=== PATIENT | male | born 1955 | race Caucasian/White ===

== ENCOUNTER 2016-12-03 12:40 | Emergency (ER) | payer BC ==
[~2016-12-03] VITALS: Ht 175.3 cm; Wt 125.2 kg
[2016-12-03] MEDS ORDERED: PREDNISONE 10 M10 MG (12:48)
[2016-12-03] MEDS ORDERED: ULTRAM 50MG TAB50 MG PO (15:21)
[2016-12-03 15:44] VITALS: BP 141/67
== END 2016-12-03 15:44 | disposition home or self-care (01) ==
LOC: ER 12:40
DX: S52.592A Other fractures of lower end of left radius, initial encounter for closed fracture (principal); Z87.442 Personal history of urinary calculi; Z98.890 Other specified postprocedural states; F10.99 Alcohol use, unspecified with unspecified alcohol-induced disorder; W01.0XXA Fall on same level from slipping, tripping and stumbling without subsequent striking against object, initial encounter; Y93.89 Activity, other specified; Y92.89 Other specified places as the place of occurrence of the external cause; Y99.8 Other external cause status

== ENCOUNTER 2020-05-25 14:18 | Inpatient (IN) | payer BC ==
[~2020-05-25] VITALS: Ht 175.3 cm; Wt 105.4 kg
[~2020-05-25 14:18] MED LIST: PREDNISONE 10 M10 MG; ULTRAM 50MG TAB50 MG PO
[2020-05-25 14:19] VITALS: BP 179/92
[2020-05-25 14:47] LABS: HEMATOCRIT 54.3 % (42.0-52.0); HEMOGLOBIN 18.6 gm/dL (14.0-18.0); MCH 31.6 pg (26.0-34.0); MCHC 34.2 g/dL (28.0-37.0); MCV 92.2 fL (80.0-100.0); PLATELET COUNT 176 thou/uL (150-400); RBC 5.89 mil/uL (4.50-6.00); RDW 12.6 % (10.5-14.5); WBC 8.5 thou/uL (4.0-11.0)
[2020-05-25 15:03] LABS: ANION GAP 14 mmol/L (7-16); BUN 28 mg/dL (7-18); CALCIUM 9.1 mg/dL (8.5-10.1); CHLORIDE 96 mmol/L (98-107); CO2 25 mmol/L (21-32); CREATININE 1.5 mg/dL (0.7-1.3); GLUCOSE 311 mg/dL (74-106); POTASSIUM 4.8 mmol/L (3.5-5.1); SODIUM 135 mmol/L (136-145)
[2020-05-25 15:09] LABS: ALBUMIN 2.4 g/dL (3.4-5.0); SGOT 88 U/L (15-37); SGPT 58 U/L (30-65); TOTAL BILIRUBIN 1.3 mg/dL (0.2-1.0); TOTAL PROTEIN 7.8 g/dL (6.4-8.2); TROPONIN-I <0.06 ng/mL (<0.06)
[2020-05-25 15:26] LABS: ABSOLUTE NEUTROPHILS 6.5 thou/uL (1.4-8.2)
[2020-05-25 15:28] LABS: LARGE PLATELETS OCCASIONAL
[2020-05-25 15:51] VITALS: BP 142/83
[2020-05-25 15:59] LABS: BE(vivo) 0.3 mmol/L (-2 to +3); HCO3 23.3 mmol/L (22.0-26.0); PCO2 34.1 mmHg (35.0-45.0); PO2 63.4 mmHg (80.0-100.0); pH 7.453 (7.360-7.450); sO2 93.4 % (92.0-98.0)
[2020-05-25 16:15] VITALS: BP 142/83
[2020-05-25 17:02] VITALS: BP 137/75
[2020-05-25] MEDS ORDERED: METFORMIN HCL1000 MG PO (17:05)
[2020-05-25] MEDS ORDERED: OMEPRAZOLE40 MG PO (17:05)
[2020-05-25] MEDS ORDERED: BENZONATATE100 MG PO (17:06)
[2020-05-25] MEDS ORDERED: TAMSULOSIN HCL0.4 MG PO (17:11)
--- NOTE | 2020-05-25 19:12 | NUR ---
PATIENT ADMIT TO UNIT AT 1700. A/O X4. ON NRB 02 SAT 94%. DENIES PAIN. AFEBRILE. VSS. WILL KEEP MONITOR.
[2020-05-25 19:28] VITALS: BP 131/71
[2020-05-26 00:28] VITALS: BP 130/70; BP 144/76
[2020-05-26 04:09] VITALS: BP 110/67
--- NOTE | 2020-05-26 05:13 | NUR ---
Pt. rested quietly at intervals during the night when checked on during frequent rounds. He offers no c/o pain,nausea or shortness of air. He is on 15 liters of 02 via nasal canula. On a continuos pulse oximetry and has been saturating in the mid 90's. Blood given as ordered without dif- ficulty. Sinus rythmn all night on the monitor.
[2020-05-26 05:59] LABS: HEMATOCRIT 46.4 % (42.0-52.0); HEMOGLOBIN 15.9 gm/dL (14.0-18.0); MCH 31.5 pg (26.0-34.0); MCHC 34.2 g/dL (28.0-37.0); MCV 92.2 fL (80.0-100.0); PLATELET COUNT 141 thou/uL (150-400); RBC 5.04 mil/uL (4.50-6.00); RDW 12.4 % (10.5-14.5); WBC 4.1 thou/uL (4.0-11.0)
[2020-05-26 06:04] LABS: FIBRINOGEN 309.3 mg/dL (210-360); INR 1.2; PROTIME 11.9 Seconds (9.3-11.4)
[2020-05-26 06:13] LABS: ALBUMIN 2.1 g/dL (3.4-5.0); CALCIUM 8.2 mg/dL (8.5-10.1); TOTAL BILIRUBIN 0.9 mg/dL (0.2-1.0); TOTAL PROTEIN 6.3 g/dL (6.4-8.2)
[2020-05-26 06:46] LABS: PLATELET ESTIMATE NORMAL
[2020-05-26 07:10] VITALS: BP 112/65
[2020-05-26 14:58] VITALS: BP 119/63
--- NOTE | 2020-05-26 19:20 | NUR ---
ASSUMED PATIENT CARE AT 0700. ON OPTIFLOW O2 WITH CONTINUE PLUSE OX SAT 92%. DENIES PAIN. UP AD DANG. SLOWLY TOWARDS POC GOALS.
[2020-05-26 19:31] VITALS: BP 115/54
--- NOTE | 2020-05-26 23:30 | NUR ---
PT UP IN CHAIR WATCHING TV. OPTI FLOW O2 75%. PT SOA WHEN TALKING. LUNGS WITH CRACKLES. PT DECLINED HS SNACK. BLE EDEMA. PT INDEP WITH AMBULATION. GOOD EYE CONTACT. BLUNTED AFFECT. DISCUSSED THE DIETING PROGRAM PT HAS BEEN ON WITH HIS GIRLFRIEND.
--- NOTE | 2020-05-27 00:17 | NUR ---
PTS DESIGNATED CONTACT CALLED FOR STATUS UPDATE. FAMILY WILL BE BRINGING IN DPOA PAPERS TO BE NOTARIZED TOMORROW.
[2020-05-27 04:41] VITALS: BP 120/71
[2020-05-27 05:49] LABS: ALBUMIN 2.3 g/dL (3.4-5.0); CREATININE 1.2 mg/dL (0.7-1.3); DIRECT BILIRUBIN 0.3 mg/dL (<0.1-0.2); TOTAL BILIRUBIN 0.9 mg/dL (0.2-1.0); TOTAL PROTEIN 6.5 g/dL (6.4-8.2)
[2020-05-27 08:10] VITALS: BP 122/68
[2020-05-27 15:16] VITALS: BP 129/55
[2020-05-27 19:28] VITALS: BP 138/73
--- NOTE | 2020-05-27 23:20 | NUR ---
PT UP IN CHAIR WATCHING TV. OPTI MAX INTACT 52L. RLL DIMINISHED. BLE EDEMA. PT HAD HS SNACK. PT RECEIVED CARE PACKAGE FROM HOME. GIRLFRIEND CALLED FOR UPDATE. PT SOA WHEN TALKING. INDEP WITH TRANSFERS.
[2020-05-28 03:05] VITALS: BP 123/75
[2020-05-28 03:25] LABS: ALBUMIN 2.3 g/dL (3.4-5.0); DIRECT BILIRUBIN 0.3 mg/dL (<0.1-0.2); TOTAL BILIRUBIN 0.6 mg/dL (0.2-1.0); TOTAL PROTEIN 5.7 g/dL (6.4-8.2)
[2020-05-28 07:36] VITALS: BP 134/81
--- NOTE | 2020-05-28 07:36 | EKG ---
[facility] [address] [address] ELECTROCARDIOGRAM REPORT Name: DMITRI CLAUDIO Room #: 349-I ADM IN M.R.#: [id number] Admission: 05/25/20 Attend Phys: Shawn Landin MD Discharge: Date of : 57 Report #: [id number] THIS REPORT FOR: cc: Praveen Wilson MD, Stephen L. MD Lundgren,Sergio Fink MD [facility] ~ THIS REPORT FOR: //name// [facility] ED Test Date: 2020-05-25 Test Time: 15:18:19 Pat Name: DMITRI CLAUDIO Department: Room: [facility] Gender: M Building Services Supervisor: eboni : 1955 Requested By: Madelyn Nazario Order Number: [id number] MD: Sergio Henriquez Measurements Intervals [place] Rate: 90 P: 11 NE: 126 QRS: -16 QRSD: 95 T: 24 QT: 383 QTc: 469 Interpretive Statements Sinus rhythm Nonspecific T wave abnormality Baseline wander in lead(s) V2,V4 No previous ECG available for comparison Electronically Signed On 05-28-2020 7:36:22 PLANNING DIVISION SUPERINTENDENT by Sergio Henriquez [email or web address] <ELECTRONICALLY SIGNED> By: Sergio Henriquez MD, FAC 05/28/20 0736 1518 1518 Sergio Henriquze MD, [facility] /EPI
[2020-05-28 09:51] LABS: HEMATOCRIT 48.2 % (42.0-52.0); HEMOGLOBIN 16.2 gm/dL (14.0-18.0); LYMPHOCYTES 11.9 % (24.0-44.0); MCH 31.4 pg (26.0-34.0); MCHC 33.7 g/dL (28.0-37.0); MCV 93.1 fL (80.0-100.0); MONOCYTES 11.8 % (1.0-8.0); PLATELET COUNT 148 thou/uL (150-400); POLYS 75.3 % (36.0-66.0); RBC 5.18 mil/uL (4.50-6.00); RDW 12.4 % (10.5-14.5)
[2020-05-28 12:09] LABS: BE(vivo) 0.6 mmol/L (-2 to +3); HCO3 23.5 mmol/L (22.0-26.0); PCO2 33.4 mmHg (35.0-45.0); PO2 58.2 mmHg (80.0-100.0); pH 7.465 (7.360-7.450)
--- NOTE | 2020-05-28 14:38 | NUR ---
INITIAL ASSESSMENT: OMERO reviewed chart and opened case due to length of stay. Spoke with nursing and attending physician. Pt was admitted from home due to acute respiratory failure. Pt placed in Enhanced Isolation due to previous positive COVID-19 test. Pt is afebrile and on optiflow. Pt is on IV abx. Pt has had convalescent plasma and is completing course of Remdesivir. SW place call to pt's room. No answer. OMERO spoke with pt's s/o, Georgiana. Introduced role of SW. Pt is normally alert/orientated x 4. Pt and s/o live at home. Prior to admission, pt was independent with ADLs. No use of DME. Pt has recently started taking medication for diabetes and watching his diet. Pt had high BG at recent physical evaluation. Pt's PCP is Dr. Alina Blair. No hx of services or post-acute placement. Pt's s/o said that she sent DPOA ppwk to the hospital yesterday for pt to sign and have notarized. OMERO explained that financial documentation will not be notarized and [facility] provides healthcare DPOA ppwk and can notarize those documents only. OMERO received call from pt's dtr, Araceli Toribio, requesting how to be able to obtain an info or update regarding pt's condition. OMERO explained that she is not listed on pt's designated/authorized contact list. Pt would need to add her to the list, if he would like to her to be a contact. Araceli verbalized understanding. OMERO updated pt's nurse. OMERO is following to assist as needed with discharge planning.
[2020-05-28 16:45] VITALS: BP 125/62
--- NOTE | 2020-05-28 19:24 | NUR ---
RECEIVED PT'S CARE AROUND 0710; PT. ON BED; SR ON THE MONITOR; DURING AM ASSSESMENT AOX4; NO C/O PAIN; AM MEDICATIONS GIVEN; EDUCATED ABOUT FALL PRECAUTIONS; ST. UNDERSTANDING; REFUSED TO CHANGE TO SUCKS PER PROTOCOL; EDUCATED TO CALL IF FEELING TOO WEEK TO STAND FROM CHAIR; ST. UNDERSTANDING; PER PT. MIGHT START USING BYPAP AT HS; BS ON THE 200 AT LUNCH & DINNER; DIET CHANGED FROM REGULAR TO CARB CONTROL; EDUCATED ABOUT MONITORING DIET; ST. UNDERSTANDING; ASSESSMENT CHARGED; FOLLOWING POC; PASSED ON REPORT;
[2020-05-28 19:42] VITALS: BP 128/70
[2020-05-29 03:43] VITALS: BP 127/69
[2020-05-29 06:26] LABS: ALBUMIN 2.2 g/dL (3.4-5.0); DIRECT BILIRUBIN 0.4 mg/dL (<0.1-0.2); TOTAL BILIRUBIN 1.1 mg/dL (0.2-1.0); TOTAL PROTEIN 6.1 g/dL (6.4-8.2)
--- NOTE | 2020-05-29 07:00 | NUR ---
PT ON BIPAP OVERNIGHT. O2 SATs >90. TOLERATED BIPAP WELL. NO C/O OF CHEST PAIN, NAUSEA OR VOMITING. AO X4. CALL APPROPRIATELY. REMAINS SR ON THE MONITOR. WILL CONTINUE TO MONITOR
[2020-05-29 07:19] VITALS: BP 128/66
[2020-05-29 15:34] VITALS: BP 114/65
--- NOTE | 2020-05-29 16:16 | NUR ---
OMERO reviewed chart and spoke with nursing and attending physician. Pt remains in Enhanced Isolation due to COVID-19. Pt is afebrile and on optiflow. Pt used bipap overnight. Pt is on IV abx and IV steroids. Pt is completing course of Remdesivir. OMERO received call from pt's s/o, Georgiana. Requesting update regarding pt's status. Update provided. Georgiana states that she gave the pt's dtrs the security code, so they can obtain updates. Pt's dtrs have questions regarding plan of care. Pt's dtrs are not listed on his authorized contact list. Pt's s/o asked about completion of DPOA ppwk. OMERO has reached out to Director of Case Mgmt and Risk Mgmt to see if DPOA can be notarized by hospital staff. Notarization can take place from window or doorway. Pt will need to sign notary book. Pt had first positive test result on 05/19. Pt's s/o was asking about rehab options, should pt need rehab at time of discharge. Pt's s/o is interested in [facility]. OMERO explained that insurance will need to be checked to see if they are in-network. OMERO faxed face sheet to [facility] for review and notified [facility] liaison. [facility] is in network with pt's insurance. Pt will need therapy evaluations when able to participate. OMERO updated pt's nurse, who will contact spiritual care for notarization of DPOA ppwk. OMERO is following to assist as needed with discharge planning.
--- NOTE | 2020-05-29 17:17 | NUR ---
ASSUMED PATIENT CARE AT 0700. OFF BIPAP TO OPTFLOW 45L/95%. DESAT WITH ANY ACTIVITY. WILL BE ON BIPAP AT [facility]. FAMILY UPDATED. GOOD APPETITE. NOT TOWARDS POC GOALS.
[2020-05-29 19:22] VITALS: BP 122/69
--- NOTE | 2020-05-30 00:30 | NUR ---
PT SITTING UP IN CHAIR WATCHING THE NEWS AT BEGINNING OF SHIFT. . OPTI FLOW 95%. BLE EDEMA FIRM +3. PT REPORTED INCREASE IN SOA WITH TRANSFERS. DAY SHIFT REPORTED PT DESATURATED WHEN TRANSFERING BACK TO BED. RESPIRATORY UPDATED. PROVIDER UPDATED. PT DID LAY PRONE FOR UNDER AN HOUR, PT STATED IT BELIEVED IT HELPED AND RAISED O2 SAT TO 97%. PTS DAUGHTER CALLED FOR UPDATE. PT USING BIPAP WHEN IN BED. GOOD EYE CONTACT, APPROPRIATE FACIAL EXPRESSIONS, JOKING AND TALKING WITH STAFF, NO SOA WITH CONVERSATION.
[2020-05-30 03:45] VITALS: BP 114/63
[2020-05-30 07:02] VITALS: BP 99/61
--- NOTE | 2020-05-30 13:15 | NUR ---
THIS FINISH PHOTOGRAPHER NOTARIZED A DPOA DOCUMENT FOR THE PATIENT TODAY. I SPOKE TO HIM OVER THE TELEPHONE, WITH HIS NURSE PRESENT. IT IS IN HIS POSSESSION, IN HIS ROOM, DUE TO HIS DIAGNOSIS. HE LISTED THE FOLLOWING AGENTS: LOU GONZALEZ- STEFANO TORRES- ON FACE SHEET
--- NOTE | 2020-05-30 14:18 | NUR ---
SW reviewed chart and spoke with nursing. Pt remains in Enhanced Isolation due to COVID-19. Pt is afebrile and on optiflow/bipap support. Pt is on IV abx and IV steorids. Pt has completed course of Remdesivir. DPOA ppwk completed today. Pt has appointed his s/o, Georgiana, as his DPOA. Pt will need therapy evals when able to participate. SW is following to assist as needed with discharge planning.
[2020-05-30 15:02] VITALS: BP 104/64
--- NOTE | 2020-05-30 17:51 | NUR ---
ASSUMED PATIENT CARE AT 0700. A/O X4. ON OPTIFLOW 55/ 95% 02 SAT 90- 94. DESAT WITH ACTIVITY. VSS. SLOWLY TOWARDS POC GOALS.
[2020-05-30 19:56] VITALS: BP 97/67
[2020-05-31 04:04] VITALS: BP 108/69
--- NOTE | 2020-05-31 05:21 | NUR ---
PT MAKING POOR PROGRESS TOWARDS GOALS. O2 AT 55L PER OPTIFLO CANNULA THROUGHOUT THE EVENING. OVERNIGHT PT WORE BIPAP AT 100% FIO2. PT STATES "I FEEL LIKE I'M A BABY STEP BETTER THAN YESTERDAY." LUNGS DIMINSHED THROUGHOUT, CRACKLES NOTED RML/RLL.
[2020-05-31 07:13] VITALS: BP 115/71
[2020-05-31 09:09] LABS: BE(vivo) 1.9 mmol/L (-2 to +3); HCO3 24.4 mmol/L (22.0-26.0); PCO2 32.7 mmHg (35.0-45.0); PO2 51.3 mmHg (80.0-100.0); sO2 89.4 % (92.0-98.0)
--- NOTE | 2020-05-31 09:42 | NUR ---
Nutrition: screen for LOS. COVID +, hx of DM. Nsg noted pt with good appetite, intake 75% or more avg. Albumin 2.2, BUN 23. Meds reviewed. BG 109-307. No new wt since admit. Assessed at low nutrition risk.
--- NOTE | 2020-05-31 12:58 | NUR ---
ASSUMED PATIENT CARE AT 0700. RT SWITCH PATIENT TO OPTIFLOW 60L 95%. DESAT TO 77% WHEN PATIENT ON BSC. REPRO ABG RESULT TO DR BOURNE AND DR HALE. DR BOURNE WANTS TRASFER PATIENT TO ICU. CALLED KAI BLAKE AND DAUGHTER RICARDO UPDATED PATIENT CONDITION AND CARE PLAN. WILL LET THEM KNOW WHEN PATIENT TRANSFER TO ICU. WILL KEEP MONITOR.
--- NOTE | 2020-05-31 14:23 | NUR ---
OMERO reviewed chart and spoke with nursing and attending physician. Pt remains in Enhanced Isolation due to COVID-19. Pt is afebrile and on optiflow/bipap support. Pt is on IV abx and IV steroids. Pt has completed course of Remdesivir and convalescent plasma. Pt to be transferred to ICU today due to respiratory status and possible need for intubation. OMERO spoke with pt's s/o, Georgiana. Georgiana is aware of pt's transfer to ICU. Pt's dtrs, Neftaly, had questions regarding plan of care and transfer to ICU. Nursing supervisor brine met with pt's s/o and dtrs at the info desk. Family aware that they are not able to visit pt in the ICU. Family was able to Face Time with pt earlier this afternoon. OMERO is following to assist as needed with discharge planning.
[2020-05-31 15:24] VITALS: BP 114/63
[2020-05-31 19:30] VITALS: BP 130/74
--- NOTE | 2020-05-31 22:33 | NUR ---
REPORT CALLED TO DMITRI ORTIZ IN ICU. PT TO TRANSPORT WITH RT ASSISTANCE ON OPTIFLO AND IN HIS HOSPITAL BED.
[2020-05-31 23:19] VITALS: BP 121/64
[2020-06-01] VITALS (18 sets, daily range): BP systolic 96–119; BP diastolic 44–64
[2020-06-01 04:41] LABS: BASOPHILS 0.1 % (0.0-2.0); EOSINOPHILS 0.2 % (0.0-3.0); HEMATOCRIT 45.2 % (42.0-52.0); HEMOGLOBIN 15.6 gm/dL (14.0-18.0); LYMPHOCYTES 13.8 % (24.0-44.0); MCH 31.8 pg (26.0-34.0); MCHC 34.4 g/dL (28.0-37.0); MCV 92.5 fL (80.0-100.0); MONOCYTES 10.7 % (1.0-8.0); PLATELET COUNT 186 thou/uL (150-400); POLYS 75.2 % (36.0-66.0); RBC 4.89 mil/uL (4.50-6.00); RDW 12.6 % (10.5-14.5); WBC 9.3 thou/uL (4.0-11.0)
[2020-06-01 04:53] LABS: FIBRINOGEN 372.7 mg/dL (210-360); INR 1.1; PROTIME 11.6 Seconds (9.3-11.4)
[2020-06-01 05:03] LABS: ALBUMIN 2.1 g/dL (3.4-5.0); CALCIUM 8.7 mg/dL (8.5-10.1); POTASSIUM 3.7 mmol/L (3.5-5.1); TOTAL BILIRUBIN 0.9 mg/dL (0.2-1.0); TOTAL PROTEIN 6.1 g/dL (6.4-8.2)
--- NOTE | 2020-06-01 05:40 | NUR ---
PATIENT HAD A GOOD NIGHT LAST NIGHT. PATIENT DENIES PAIN OR DISTRESS. PATIENT WAS BRADYCARDIC AND DROPPED INTO THE 30S FOR A FEW SECONDS. DOCTOR NOTIFIED OF THIS. NO NEW ORDERS. I DISCUSSED PATIENT'S CARE WITH HIS GIRLFRIEND THIS MORNING(EMERGENCY CONTACT) AND EDJUCATED HER ON THE IMPORTANCE OF GETTING HIM TO PRRONE. .
--- NOTE | 2020-06-01 07:48 | NUR ---
CONVERSATION HAD WITH PT AND PT EDUCATED ON WHY WE WOULD LIKE HIM TO PRONE. PT STATES UNDERSTANDING. PT THEN STATES WELL I WILL LAY ON MY STOMACH TILL BREAKFAST COMES. PT PRONED SELF.
--- NOTE | 2020-06-01 12:15 | NUR ---
discussed with bedside nurse. pt cont use of bipap and hf o2. + covid. spoke with daughter abraham. no anticipated dc over the weekend. will cont following as needed for dc needs.
--- NOTE | 2020-06-01 15:17 | NUR ---
TALKED WITH GIRL FRIEND LOU GONZALEZ ON THE PHONE. PT UPDATE GIVEN. SHE REQUESTED TO BE CALLED WHEN O2 DEMANDS ARE BEING TIRATED DOWN THROUGHOUT THE DAY AND NIGHT REGARDLESS OF TIME. QUESTIONS ANSWERED. POC GONE OVER WITH HER.
--- NOTE | 2020-06-01 17:54 | NUR ---
PT DID WELL TODAY. PROGRESSING TOWARDS GOALS. PT PRONING SELF. UP TO CHAIR WITH STANDBY ASSIST. PT HAS GOOD STRONG COUGH. NO SPUTUM. VSS. AFEBRILE. OXYGEN PER OPTIFLOW @ 60L 90% WITH SATURATIONS > 95% TODAY.
[2020-06-02] VITALS (33 sets, daily range): BP systolic 89–129; BP diastolic 38–70
[2020-06-02 04:07] LABS: ALBUMIN 2.1 g/dL (3.4-5.0); CALCIUM 8.4 mg/dL (8.5-10.1); TOTAL PROTEIN 6.1 g/dL (6.4-8.2)
[2020-06-02 04:46] LABS: ABSOLUTE NEUTROPHILS 7.4 thou/uL (1.4-8.2); BASOPHILS 0.1 % (0.0-2.0); EOSINOPHILS 0.2 % (0.0-3.0); HEMATOCRIT 45.8 % (42.0-52.0); HEMOGLOBIN 15.5 gm/dL (14.0-18.0); LYMPHOCYTES 12.8 % (24.0-44.0); MCH 31.4 pg (26.0-34.0); MCHC 33.9 g/dL (28.0-37.0); MCV 92.8 fL (80.0-100.0); MONOCYTES 10.6 % (1.0-8.0); PLATELET COUNT 170 thou/uL (150-400); POLYS 76.3 % (36.0-66.0); RBC 4.94 mil/uL (4.50-6.00); RDW 12.3 % (10.5-14.5); WBC 9.7 thou/uL (4.0-11.0)
[2020-06-02 05:22] LABS: BE(vivo) 3.1 mmol/L (-2 to +3); HCO3 26.3 mmol/L (22.0-26.0); PCO2 35.9 mmHg (35.0-45.0); pH 7.482 (7.360-7.450); sO2 96.5 % (92.0-98.0)
--- NOTE | 2020-06-02 07:10 | NUR ---
PATIENT ENCOURAGED TO PRONE. PATIENT IS AGREEABLE TO THIS AND HAS BEEN SELF PRONING THIS EVENING.
--- NOTE | 2020-06-02 10:07 | NUR ---
TALKED WITH LOU GONZALEZ GIRLFRIEND ON THE PHONE. UPDATES GIVEN. PT CONDITION REVIEWED. POC GONE OVER.
--- NOTE | 2020-06-02 17:36 | NUR ---
TALKED WITH LOU COBOS GIRLFRIEND UPDATE ON CONDITION GIVEN
--- NOTE | 2020-06-02 18:25 | NUR ---
PT DOING WELL THOUGHOUT THE DAY. OXYGEN DEMANDS STAY THE SAME @ 60L 90% ON OPTIFLOW. PT DID DESATURATE WHEN HE ATE BREAKFAST DOWN TO 86 AND WHEN HE GOT TO BEDSIDE COMMODE, DOWN TO 78%, BUT RECOVERED WITHING A MINUTE BACK UP INTO THE 90'S. PT HAS BEEN PRONING HIMSELF THOUGHOUT THE SHIFT. EDUCATED ON PRONING AND WEARING THE BIPAP TONIGHT AT REST.
--- NOTE | 2020-06-02 23:47 | NUR ---
PT STATED HE IS FEELING BETTER THIS EVENING AND HE FEELS LIKE HE IS ABLE TO BREATHE MORE EASILY. HE HAS BEEN LYING PRONE FOR ROUGHLY 2.5 HOURS WHILE ON OPTIFLOW. HE IS ABLE TO REPOSITION HIMSELF INDEPENDENTLY IN THE BED. PT'S SIGNIFICANT OTHER (LOU) CALLED AT 2330 FOR UPDATE. RT PLACED PT ON BIPAP AROUND 2345. WILL CONTINUE TO MONITOR DURING THE NIGHT.
[2020-06-03] VITALS (24 sets, daily range): BP systolic 85–123; BP diastolic 42–70
--- NOTE | 2020-06-03 05:07 | NUR ---
PT HAS BEEN SLEEPING MOST OF THE NIGHT. RESPIRATIONS EVEN AND UNLABORED. HE HAS BEEN ON BIPAP SINCE AROUND 2344 AND HAS TOLERATED WELL. AFEBRILE. VSS. PROGRESSING SLOWLY TOWARD POC GOALS.
--- NOTE | 2020-06-03 10:00 | NUR ---
PT'S GIRLFRIEND AND DPOA LOU CALLED AND ASKED FOR PT UPDATE. LOU STATED THAT SHE WOULD LIKE DR. BOURNE TO GIVE HER A CALL AT [phone] WHEN HE GETS SOME TIME TODAY. WILL PASS ALONG REQUEST TO DR. BOURNE.
--- NOTE | 2020-06-03 19:40 | NUR ---
PT REMAINED ENTIRE SHIFT ON OPTI-FLOW MAXED AT HIGHEST O2 AND 100% FIO2. PT'S DENIED ANY RESPIRATORY PROBLEMS ENTIRE SHIFT. PT DID DESAT QUICKLY WITH ANY ACTIVITY BUT DID NOT APPEAR TO BE IN ANY DISTRESS WHEN HIS O2 SAT DROPPED. PT HAS DRY NON PRODUCTIVE COUGH. PT ATE 100% OF MEALS AND IS ABLE TO STAND AT BEDSIDE STEADY ON FEET TO USE URINAL.
[2020-06-04] VITALS (90 sets, daily range): BP systolic 68–180; BP diastolic 42–114
[2020-06-04 04:48] LABS: HCO3 26.9 mmol/L (22.0-26.0); PCO2 38.8 mmHg (35.0-45.0); PO2 59.7 mmHg (80.0-100.0); pH 7.458 (7.360-7.450); sO2 92.2 % (92.0-98.0)
[2020-06-04 05:44] LABS: ABSOLUTE NEUTROPHILS 13.5 thou/uL (1.4-8.2); BASOPHILS 0.1 % (0.0-2.0); EOSINOPHILS 0.1 % (0.0-3.0); HEMATOCRIT 49.2 % (42.0-52.0); HEMOGLOBIN 16.5 gm/dL (14.0-18.0); LYMPHOCYTES 10.4 % (24.0-44.0); MCH 31.2 pg (26.0-34.0); MCHC 33.6 g/dL (28.0-37.0); MCV 92.8 fL (80.0-100.0); MONOCYTES 9.2 % (1.0-8.0); PLATELET COUNT 165 thou/uL (150-400); POLYS 80.2 % (36.0-66.0); RDW 12.2 % (10.5-14.5); WBC 16.8 thou/uL (4.0-11.0)
[2020-06-04 06:55] LABS: CALCIUM 9.1 mg/dL (8.5-10.1); CREATININE 0.9 mg/dL (0.7-1.3); POTASSIUM 3.9 mmol/L (3.5-5.1); TOTAL BILIRUBIN 1.4 mg/dL (0.2-1.0); TOTAL PROTEIN 6.4 g/dL (6.4-8.2)
--- NOTE | 2020-06-04 07:45 | NUR ---
IN PTS ROOM. PT IS BREATHING IN THE 40'S. SATURATIONS IN THE 70'S. BP NOW SHOWING 70/40'S. 0750 1L NS GIVEN WITH PRESSURE BAG 0800 LEVOPHED GTT STARTED @ 10 MCG/MIN. OXYGEN SATUARTIONS STILL IN HIGHER 70'S 0803 PEEP DROPPED FROM 14 TO 8 PER RESP THERAPY. PT TOLERATING WITH SATURATIONS GOING UP TO 88% 0810 LEVOPHED GTT DOWN TO 5 MCG/MIN. PT STATUATIONS LOW 90'S. BP 140'S SYSTOLIC.
--- NOTE | 2020-06-04 07:48 | NUR ---
AT AROUND 0600 PATIENT HAD A COUGHING FIT. PATIENT DESATTED DOWN TO 80%. PATIENT DID NOT REBOUND. TRIED TO PRONE THE PATIENT, AND THE PATIENT DROPPED TO 60%. PATIENT PUT TO HIS BACK AND WAS BAGGED. ER DOCTOR CALLED. PATIENT INTUBATED AT 0630 7.5 ETT 24 AT THE LIPS. FAMILY NOTIFIED AT 0715.
[2020-06-04 08:15] LABS: BE(vivo) 1.9 mmol/L (-2 to +3); HCO3 27.8 mmol/L (22.0-26.0); PCO2 47.8 mmHg (35.0-45.0); PO2 85.3 mmHg (80.0-100.0); pH 7.383 (7.360-7.450); sO2 96.2 % (92.0-98.0)
--- NOTE | 2020-06-04 08:23 | NUR ---
0600- Patient desat, lowest reading 68%, he expressed he had a coughing spell. Nurse contacted Dr. Robles secondary to patient oxygenation saturation not coming back up into the 90% range. His oxygenation range was 68%-77%. Nurse informed of this. Dr. Robles expressed to contact ED to have physician intubate patient immediately.
--- NOTE | 2020-06-04 08:33 | NUR ---
PAGED DR. CHERY FOR MORE SEDATION. PT TACHYPNEIC IN THE 40'S
--- NOTE | 2020-06-04 08:41 | NUR ---
TALKED WITH DAUGHTER RICARDO ON THE PHONE. UPDATE GIVEN ON PT CONDITION. PT BEING ON VENTILATOR. QUESTIONS ANSWERED. POC GONE OVER WITH RICARDO.
--- NOTE | 2020-06-04 08:56 | NUR ---
ORDER FOR FENTYNAL IVPB TIRATION FOR SEDATION OBTAINED FROM DR. CHERY.
--- NOTE | 2020-06-04 09:50 | NUR ---
DELPHINE SILVA WAS CALLED AND CONSENT FOR PICC/CENTRAL LINE INSERTION OBTAINED
--- NOTE | 2020-06-04 10:29 | NUR ---
Change in nutrition status: pt now intubated
--- NOTE | 2020-06-04 10:30 | NUR ---
TALKED WITH LOU PTS GIRLFRIEND ON THE PHONE. UPDATED ON PTS CONDITION AND POC
--- NOTE | 2020-06-04 11:10 | NUR ---
LOU THE GIRLFRIEND CAME INTO THE [facility]OPSITAL TO AUXILIARY ENGINEER PTS CELL PHONE. SHE ASKED WHY SHE WAS NOT CALLED SINCE SHE THE THE DPOA. STATES THEY DID PAPERWORK WHEN HE WAS UPSTAIRS ON 3W. LOOKED IN THE CHART AND FOUND PAPERWORK. WILL UPDATE [facility] TO REFLECT. SHE IS WANTING TO SEE PT. TOLD HER PER OUR HOSPITAL POLICY THERE ARE NO VISITORS FOR COVID PTS. SHE IS GOING TO TALK TO CASE MANAGMENT REGJAYLANING SINCE SHE HAS ALREADY HAD COVID.
--- NOTE | 2020-06-04 12:26 | NUR ---
Call rec'd from dtr Araceli and update provided. Pt now intubated and stable in the ICU. Support provided. Clarified pt does have active DPOA for HC on the chart. Pt's girl friend Georgiana is his DPOA for HC and dtr Liyah is the alternate. Both dtrs able to call and get updates. Case discussed with the care team. Will follow.
--- NOTE | 2020-06-04 15:44 | NUR ---
VAT CONSULTED FOR A CL. [id number] PLACED. PLEASE SEE NI FOR DETAILS
--- NOTE | 2020-06-04 18:42 | NUR ---
EVENTS THROUGHOUT THE DAY CHARTED. PT IS ON VENT. PEEP 6 100% FIO2. SEDATED WITH FENTYNAL AND PROPOLFOL. LEVOPHED FOR BP SUPPORT. FAMILY TALKED TO SEVERAL TIMES THROUGHOUT THE SHIFT. BATH GIVEN. PT STABLE.
[2020-06-05] VITALS (96 sets, daily range): BP systolic 95–135; BP diastolic 55–82
[2020-06-05 05:58] LABS: BE(vivo) 3.3 mmol/L (-2 to +3); HCO3 28.4 mmol/L (22.0-26.0); PCO2 44.7 mmHg (35.0-45.0); PO2 68.4 mmHg (80.0-100.0); pH 7.421 (7.360-7.450); sO2 93.9 % (92.0-98.0)
--- NOTE | 2020-06-05 06:48 | NUR ---
PATIENT HAD A GOOD NIGHT, HIS OXYGEN SATS STAYED IN THE 90S THROUGH THE NIGHT. PATIEN DID HAVE LOW URINE OUTPUT. I SPOKE WITH THE WATER/WASTEWATER PROJECT MANAGER ABOUT THIS AND GOT SOME NS ORDERED.
[2020-06-05 07:08] LABS: HEMATOCRIT 48.2 % (42.0-52.0); HEMOGLOBIN 16.1 gm/dL (14.0-18.0); MCH 31.2 pg (26.0-34.0); MCHC 33.4 g/dL (28.0-37.0); MCV 93.3 fL (80.0-100.0); RBC 5.16 mil/uL (4.50-6.00); RDW 12.6 % (10.5-14.5); WBC 24.6 thou/uL (4.0-11.0)
[2020-06-05 07:20] LABS: CALCIUM 8.9 mg/dL (8.5-10.1); CREATININE 0.9 mg/dL (0.7-1.3); POTASSIUM 3.6 mmol/L (3.5-5.1)
--- NOTE | 2020-06-05 16:16 | NUR ---
cherri returned call to shahnaz barrett for neris [phone], had question on how to tell someone how good and patient nurse is on nights working with neris. lena has been good to work with since cant visit. would like to know how to record kids message and have nurse play them for neris in room. would like to know how to set up pt portal so i can pay bills, can email me at [email or web address] or email neris at [email or web address]. last question would like to ask question for dr bonilla if can call me per shahnaz. cherri passed on the complement to nurse unite dried yeast supervisor and will have to see who in pt access she would talk with about pt portal. will cont following as needed for dc needs.
--- NOTE | 2020-06-05 17:01 | NUR ---
ASSUMED CARE @ 0700 06/05/20, PT ASSESSEMENTS AND VS COMPLETE PER ICU PRT. DR CHERY AND DR HALE @ BEDSIDE @ 1200, ORDERS RECIEVED TO INCREASE PEEP FROM 5-8. RT INFORMED. 3844: LOU CALLED FOR AN UPDATE, CODE VERIFIED AND UPDATE GIVEN. 1323: RICARDO CALLED FOR AN UPDATE, CODE VERIFIED AND UPDATE GIVEN.
--- NOTE | 2020-06-05 22:37 | NUR ---
>>>1900 BEDSIDE REPORT RECEIVED, CARE ASSUMED. >>>2000 ASSESSMENTS DONE DOCUMENTED. NO pain or discomfort noted. Pt continues on vent management. No sedation vacation done at this time d/t not meeting criteria. FI02 at 100%. >>>2210 Significant other called, updated about pt condition with regards to vent, BP management and labs. All questions answered. Will continue to monitor.
[2020-06-06] VITALS (104 sets, daily range): BP systolic 64–119; BP diastolic 40–81
[2020-06-06 04:10] LABS: HEMATOCRIT 46.4 % (42.0-52.0); HEMOGLOBIN 15.4 gm/dL (14.0-18.0); MCH 31.2 pg (26.0-34.0); MCHC 33.1 g/dL (28.0-37.0); MCV 94.2 fL (80.0-100.0); RBC 4.93 mil/uL (4.50-6.00); RDW 12.5 % (10.5-14.5)
[2020-06-06 04:26] LABS: CALCIUM 8.7 mg/dL (8.5-10.1); CREATININE 0.8 mg/dL (0.7-1.3)
--- NOTE | 2020-06-06 08:29 | NUR ---
TALKED WITH LOU PTS DPOA/GIRLFRIEND. EVENTS THROUGHOUT THE NIGHT GONE OVER. PTS VENT SETTINGS AND CONDITION. LOU WOULD LIKE TO TALK WITH THE DR HERNANDEZING TREATMENT FOR HIS COIVD. INFORMED HER THAT WOULD BE DR. PARKER AND I WOULD RELAY THE MESSAGE.
--- NOTE | 2020-06-06 11:09 | NUR ---
girlfriend shahnaz called stated she is wanting his medical rec and to see what medication he is on, kids are flipping out. active listen during visit. education to get med rec have the form filled out.
--- NOTE | 2020-06-06 11:09 | NUR ---
girlfriend shahnaz/ 1st dpoa called, stated " she is wanting his medical rec and to see what medication he is on, the kids are flipping out"/shahnaz. cm education with shahnaz that she would have to go through medical rec to getting his medical reports and list of medication. active listen during phone call visit.
--- NOTE | 2020-06-06 14:10 | NUR ---
TALKED WITH LOU ON THE PHONE. SHE WOULD LIKE TO TALK WITH DR PARKER IF POSSIBLE. WILL RELAY THE MESSAGE. PT CONDITION UPDATE GIVEN
--- NOTE | 2020-06-06 14:10 | NUR ---
cherri called pod 1, unable to speak with bedside nurse rt she is in the room. cherri passed on information that to call shahnaz back when able to.
--- NOTE | 2020-06-06 14:34 | NUR ---
TALKED WITH DAUGHTER RICARDO ON THE PHONE. UPDATE GIVEN. QUESTIONS ANSWERED.
--- NOTE | 2020-06-06 18:39 | NUR ---
ORDERS FOR PRONING PT TODAY. 8HRS AT A TIME. PT TURNED PRONE @ 1230. LOU WOULD LIKE TO TALK WITH DR. PARKER. DR PARKER IS AWARE.
[2020-06-06 23:09] LABS: HEMATOCRIT 57.7 % (42.0-52.0); MCH 31.4 pg (26.0-34.0); MCHC 33.2 g/dL (28.0-37.0); MCV 94.6 fL (80.0-100.0); PLATELET COUNT 163 thou/uL (150-400); RBC 6.11 mil/uL (4.50-6.00); RDW 13.1 % (10.5-14.5)
[2020-06-06 23:30] LABS: CALCIUM 8.7 mg/dL (8.5-10.1); CREATININE 1.7 mg/dL (0.7-1.3); POTASSIUM 5.4 mmol/L (3.5-5.1)
[2020-06-06 23:31] LABS: HEMOGLOBIN 19.2 gm/dL (14.0-18.0)
[2020-06-06 23:32] LABS: WBC 44.7 thou/uL (4.0-11.0)
[2020-06-07] VITALS (152 sets, daily range): BP systolic 65–210; BP diastolic 30–126
[2020-06-07 01:05] LABS: ABSOLUTE NEUTROPHILS 38.4 thou/uL (1.4-8.2)
--- NOTE | 2020-06-07 01:05 | NUR ---
>>>1920 BEDSIDE SHIFT REPORT RECEIVED, CARE ASSUMED. >>>2009 ASSESSMENTS DONE DOCUMENTED, PT IS IN PRONE POSITION. 02 AT 89%. RT PRESENT. DR PARKER ROUNDING ON PT, SEE NEW ORDERS. >>>2029 PT POSITIONED ON HIS BACK. URINE OUTPUT AT 10ML/HR, DR PARKER AND DR CHERY AWARE. NEW ORDERS GIVEN. PT BP ON THE LOW 80s, LEVOPHED DRIP TITRATED PER PROTOCOL. >>>2400 DR CHERY NOTIFIED OF CRITICAL LABS. UPDATED ON PT CONDITION. SEE NEW ORDERS.
[2020-06-07 01:06] LABS: PLATELET ESTIMATE NORMAL
[2020-06-07 02:59] LABS: BE(vivo) -4.5 mmol/L (-2 to +3); HCO3 22.7 mmol/L (22.0-26.0); PCO2 48.6 mmHg (35.0-45.0); PO2 56.4 mmHg (80.0-100.0); sO2 85.8 % (92.0-98.0)
[2020-06-07 03:00] LABS: pH 7.287 (7.360-7.450)
[2020-06-07 05:28] LABS: INR 1.3; PROTIME 13.4 Seconds (9.3-11.4)
[2020-06-07 05:36] LABS: HEMOGLOBIN 17.4 gm/dL (14.0-18.0)
[2020-06-07 05:43] LABS: HEMATOCRIT 52.7 % (42.0-52.0); MCH 31.2 pg (26.0-34.0); MCV 94.6 fL (80.0-100.0); PLATELET COUNT 134 thou/uL (150-400); RBC 5.58 mil/uL (4.50-6.00)
[2020-06-07 06:09] LABS: WBC 48.1 thou/uL (4.0-11.0)
[2020-06-07 07:18] LABS: URINE BILIRUBIN NEGATIVE (Negative); URINE BLOOD NEGATIVE (Negative); URINE CLARITY CLEAR; URINE COLOR YELLOW; URINE GLUCOSE-RANDOM* NEGATIVE (Negative); URINE KETONES NEGATIVE (Negative); URINE LEUKOCYTES-REFLEX TRACE (Negative); URINE NITRITE-REFLEX NEGATIVE (Negative); URINE PROTEIN (DIPSTICK) NEGATIVE (Negative); URINE UROBILINOGEN 0.2 E.U./dl (0.2-1.0)
[2020-06-07 07:56] LABS: ABSOLUTE NEUTROPHILS 43.8 thou/uL (1.4-8.2)
[2020-06-07 07:57] LABS: PLATELET ESTIMATE DECREASED
[2020-06-07 08:16] LABS: BE(vivo) -7.3 mmol/L (-2 to +3); HCO3 21.3 mmol/L (22.0-26.0); PCO2 53.5 mmHg (35.0-45.0); PO2 59.9 mmHg (80.0-100.0); pH 7.218 (7.360-7.450); sO2 85.5 % (92.0-98.0)
--- NOTE | 2020-06-07 08:56 | NUR ---
cm had missed call from shahnaz at 0750, tearful voice message " i want to come and see him, need to make this work"/shahnaz. cherri spoke with bedside nurse who passed on "she calling many times a day for updates (10 times )" per bedside nurse. cm let nurse know, when call shahnaz and daughter jeannette back, will education that nurse will call when able to, need to be able to care for pt and can not be on phones all day. cm returned call to shahnaz, could her she was tearful, she stated " we are here [facility] and want to see neris, daughter are here as well, i have had negative covid and have covid so what is the risk?. they called saying can not keep his bp up and kidneys are failing. when can we see him"?/ shahnaz. cherri re education that no visitor when on covid unite or is covid positive and neris is covid positive, only time can have visitor is when care has been changed to comfort care then family would be told when, who and how many can visit. will have to speak with icu nurse cofferdam construction supervisor or cno. " ok will wait and talk with them"/shahnaz/dpoa. cm provided updates to icu cofferdam construction supervisor and will cont following as needed for dc needs.
--- NOTE | 2020-06-07 08:56 | NUR ---
cm had phone call at 0750 from shahnaz walker, saying i want to come and see him and need you to make this work. cm spoke with bedside nurse who stated shahnaz is calling many times a day for updates ( 10 times ), per bedside nurse. cm let nurse know cm will call family back and education that nurses will call when able to after cares completed. cm returned call to girlfriend shahnaz, she was tearful stated they are here in the main hospital and want to see neris, daughter are here as well, i have a negative covid and have had it so what is risk for me, call and say cant keep his bp up and is in kidney failure, when can we see him. cm education no visitor when on covid unite or is covid positive, neris is covid positive, only time can have visitor if care has been made comfort care and then family would be told when can visit and how many can visit. education that have to speak with icu nurse supervisor plastic sheets or cno. ok will wait and talk with them per shahnaz. cm provided updates to icu supervisor plastic sheets. will cont following as needed for dc needs.
--- NOTE | 2020-06-07 09:00 | NUR ---
>>>>>> around 0800, arnold nielson called to inquire regarding pt status. updated on low bp therefore levophed infusing. urine output was very low during night. dr. villatoro, renal consulted. sao2 in upper 80's despite being on fio2-100% on vent. shahnaz stating that she needs to see him. rn informed her of no visitors with covid diagnosis. she continued to request someone to speak to that would allow her to visit. rn restated, no visition policy. then rn spoke with icu charge nurse, Talya Pena rn with recommendation to have Shahnaz, speak with [facility] Will. when rn immediately returned to phone, Shahnaz was not there. rn immediately into pt room to provide critical care to unstable pt. staff members relaying messages that she was calling, inquiring. continued to provide care to unstable pt.
--- NOTE | 2020-06-07 10:10 | NUR ---
cm returned call to jeannette, she was "wanting the paperwork back that had initial done for dpoa and financial poa, we were told that has to be hospital paper work for dpoa and since my signature is on the paperwork that be had brought while he was on 3w, just wanting it back. shahnaz when in hospital to speak with dr's and sister and i are sitting in the car here"/daughter jeannette /arnold 2nd. cm education that would have to have someone look in the to paper work they brought from home and was not notarized here.
--- NOTE | 2020-06-07 12:54 | NUR ---
THIS CST PARTICIPATED IN TEAM MEETING WITH MEDICAL STAFF, LONI AND DAUGHTERS. THIS CST, WITH DIRECTION FROM THE UNIT NURSE DIAGNOSTIC TECH FACILITATED A "THROUGH THE GLASS OBSERVATION" BY LONI/S.O. OF THE PATIENT.
--- NOTE | 2020-06-07 14:00 | NUR ---
>>>>>> levophed infusing, started vasopressin for bp support at 1300. sao2 generally improving into very low 90's. continuing bed rotation. large amount urine output per garcía this shift. arnold nielson sat outside the glass doors to pt room to observe him. phone taken into room so she was able to see and speak to him on the phone. camille present providing her support.
--- NOTE | 2020-06-07 15:50 | NUR ---
>>>>> arnold christie called regarding update on pt status. rn updated including bp stablized with use of levophed and vasopressin, sao2 in lower 90's and continues to remain on fio2 100% on vent. pt has very good urine output.
--- NOTE | 2020-06-07 21:08 | NUR ---
1030-SPOKE W LOU,DPOA/GIRLFRIEND.MANY CONCERNS & VERY UPSET AT VISITING RESTRICTIONS.MUCH TIME SPENT W HER ON PHONE.PASSED THRU TO BRUSH FABRICATION SUPERVISOR'S OFFICE PHONE (ANGEL JACK).--VW
[2020-06-08] VITALS (143 sets, daily range): BP systolic 66–174; BP diastolic 37–103
--- NOTE | 2020-06-08 05:00 | NUR ---
SV NOT INDICATED DUE TO VENT SETTINGS, PT BP VERY LABILE AND DEPENDENT UPON PRESSORS, NOT RESPONSIVE, PUPILS REACTIVE, MINIMAL/SCANT ETT AND ORAL SECRETIONS. 02 SATS EXTREMELY SENSITIVE WITH MVT, IN ROTATION ON BED, CANNOT TURN PATIENT DUE TO INSTABILITY. NOTED CREPITUS AND SUBQ AIR AROUND NECK AT 0400 ASSESSMENT, DISCUSSED WITH RT, CAN STILL HEAR BREATH SOUNDS BL. OBTAINED AM CXR A STAT TO R/O PNEUMO, AWAITING RESULTS, SATS ARE STABLE AT THIS TIME 89-91% ON FI02 100%. SPOKE WITH FAMILY X3 THIS SHIFT
[2020-06-08 05:25] LABS: HEMATOCRIT 50.7 % (42.0-52.0); HEMOGLOBIN 16.5 gm/dL (14.0-18.0); MCH 31.2 pg (26.0-34.0); MCHC 32.5 g/dL (28.0-37.0); MCV 95.9 fL (80.0-100.0); RBC 5.29 mil/uL (4.50-6.00); RDW 12.8 % (10.5-14.5); WBC 35.5 thou/uL (4.0-11.0)
[2020-06-08 05:37] LABS: ALBUMIN 1.5 g/dL (3.4-5.0); DIRECT BILIRUBIN 0.4 mg/dL (<0.1-0.2); TOTAL BILIRUBIN 0.7 mg/dL (0.2-1.0); TOTAL PROTEIN 5.4 g/dL (6.4-8.2)
[2020-06-08 05:47] LABS: ALBUMIN 1.5 g/dL (3.4-5.0); CALCIUM 8.1 mg/dL (8.5-10.1); CREATININE 1.5 mg/dL (0.7-1.3); PHOSPHORUS 5.4 mg/dL (2.5-4.9); POTASSIUM 5.1 mmol/L (3.5-5.1)
--- NOTE | 2020-06-08 09:30 | NUR ---
TALKED TO DR. CHERY REGUARDING PT CHEST XRAY THIS AM AND CURRENT CONDITION. ORDER FOR CHEST XRAY @ 1400 TODAY OBTAINED. ORDERS TO NOT PRONE PT AT THIS TIME.
--- NOTE | 2020-06-08 09:35 | NUR ---
On 06/07/20 I was call to the Main Entrance because they had family members of Mr. Hand down there crying and insisting on coming to the ICU to visit. Upon getting to the Main entrance, there are 3 ladies all crying and looking very angry and distraught. I pulled them to the side and introdroduced myself and asked who the DPOA was. Georgiana Idenitifed herself as the Medical DPOA. Both Liyah and Araceli are there. I explained to them that since COVID 19 all Hospitals and everywhere in the country has been restricting things. I explained that this Hospital along with other have decreased visiting hours to decrease the spread of COVID. This Hospital only allows 1 visitor and that visitor could look throught the glass at their loved one but could not go in the room for safety reasons. They expressed there opinons very lively, and I expressed the same procedure. What would like like to do. Then I told them that we would have the physicians speak to them on a 3 [address] phone call, that it judah take me awhile to get everyone together. I called Dr Landin and Dr Bhardwaj to come tlak to the DPOA and we could call for the daugthers to listen and ask questions. They both showed up and the questions and discussions started. The daugthers did not believe we were trying all the treatments that are out in the community. The Physicians explained the [facility] and [facility] plans and that we would make sure that DR Middleton spoke with them. Georgiana the DPOA went to see her loved one. His condition has been critical and they spoke to them about making him a DNR but no conclusion as of yet.
--- NOTE | 2020-06-08 09:51 | NUR ---
TALKED WITH LOU PTS GIRLFRIEND/DPOA ON THE PHONE. [facility]BA LAB WORK AND XRAY REVIEWED. PTS CURRENT CONDITION AND POC GONE OVER. QUESTIONS ANSWERED.
--- NOTE | 2020-06-08 10:11 | NUR ---
cm received voice message from shahnaz " have some question and want to still speak with dr canseco"/shahnaz. noted in chart bedside nurse has been providing updates to shahnaz and some MD visited with shahnaz yesterday and neris daughters. neris remains on vent with nutritional support. covid +. unable to visit with neris rt conserve on ppe. will cont following as needed for needs.
--- NOTE | 2020-06-08 16:30 | NUR ---
TALKED WITH LOU COBOS GIRLFRIEND. UPDATE GIVEN. DR. PARKER TALKED WITH HER ON THE PHONE WELL.
--- NOTE | 2020-06-08 16:35 | NUR ---
TALKED WITH DR. CHERY REGARDING PTS CHEST XRAY. NO NEW ORDERS RECEIVED AT THIS TIME. DO NOT PRONE PT .
--- NOTE | 2020-06-08 19:27 | NUR ---
PT XRAY SHOWING PNEUMOMEDIASTINUM. SUBCUTANEOUS AIR FROM NIPPLE LINE UP CHEST INTO NECK, CREPTIUS PRESENT. O2 SATUARTIONS STABLE ON P16 FIO2 100. FAMILY UPDATED THROUGHOUT SHIFT PREVIOUSLY CHARTED.
[2020-06-09] VITALS (141 sets, daily range): BP systolic 84–153; BP diastolic 49–91
[2020-06-09 03:48] LABS: HEMATOCRIT 50.2 % (42.0-52.0); HEMOGLOBIN 16.2 gm/dL (14.0-18.0); MCH 30.8 pg (26.0-34.0); MCHC 32.4 g/dL (28.0-37.0); MCV 95.1 fL (80.0-100.0); RBC 5.28 mil/uL (4.50-6.00); RDW 12.9 % (10.5-14.5); WBC 36.2 thou/uL (4.0-11.0)
[2020-06-09 04:00] LABS: ALBUMIN 1.6 g/dL (3.4-5.0); CALCIUM 8.2 mg/dL (8.5-10.1); CREATININE 1.2 mg/dL (0.7-1.3); PHOSPHORUS 4.9 mg/dL (2.5-4.9); POTASSIUM 5.4 mmol/L (3.5-5.1)
--- NOTE | 2020-06-09 07:50 | NUR ---
NOT APPROPRIATE FOR SV, TOLERATING SEDATION WELL AT THIS TIME, PUPILS REACTIVE BUT NOT RESPONSIVE. NOT STABLE TO TURN, ORDERS FROM KO TO HOLD ON PRONES FOR NOW. HIGH RESIDUALS, AT 0400 120CC, 1X FEEDING AND BENEPROTEIN GIVEN. UPDATES GIVEN TO FAMILY AT 2130 AND 0600.
--- NOTE | 2020-06-09 16:07 | NUR ---
VAT CONSULTED FOR A CL FOR RESP DISTRESS. 6FRTLIJ PLACED. PLEASE SEE NI FOR DETAILS
--- NOTE | 2020-06-09 16:21 | NUR ---
PT INTUBATED AND SEDATED. VASOACTIVE MEDS LEVOPHED,VASPRESSIN GTT'S. PEEP HAS BEEN DECREASED FROM 16 TO 10. CARDIOLOGY CONSULTED FOR RECURRENT A-FIB. PT CONTINUES TO HAVE SUB-Q AIR BILATERALLY. NECK SWELLING DOES NOT APPEAR TO BE GETTING LARGER. AFEBRILE, NO BM, ADEQUATE UOP, RESTRAINTS IN PLACE. NO SEDATION VACATION DUE TO HIGH VENTILATOR SETTINGS. TOLERATING TUBE FEED BOLUS'S. FAMILY WAS ABLE TO FACETIME PT. PT AND FAMILY HAVE BEEN UPDATED AND EDUCATED ON PT CONDITION AND POC. PT SLOWLY PROGRESSING TOWARDS POC.
--- NOTE | 2020-06-09 19:53 | NUR ---
CONFUSION REGARDING LOVENOX ORDER, CALL TO MIRI TO ASK ABOUT RESTARTING, PER DAY SHIFT HE HAD DISCUSSED RESTARTING AT 1/2 DOSE. ORDERS TO RESTART BECAUSE KO THOUGHT CARDIOLOGY HAD PUT IN ORDER. NOTED ORDER HAD NOTE ON IT TO RESTART PER CARDIOLOGY. CALL TO DR. THORNE TO CLARIFY. WAS ADVISED THAT DR. HTORNE AND PHARMACY HAD DISCUSSED AND WAS TOLD TO DISCONTINUE LOVENOX ALL TOGETHER AT THIS TIME DUE TO LOW PLT COUNT
[2020-06-10] VITALS (125 sets, daily range): BP systolic 74–172; BP diastolic 37–89
[2020-06-10 04:30] LABS: HCO3 30.3 mmol/L (22.0-26.0); PCO2 50.8 mmHg (35.0-45.0); pH 7.393 (7.360-7.450); sO2 87.5 % (92.0-98.0)
[2020-06-10 04:31] LABS: PO2 54.1 mmHg (80.0-100.0)
[2020-06-10 05:06] LABS: HEMATOCRIT 47.1 % (42.0-52.0); HEMOGLOBIN 15.2 gm/dL (14.0-18.0); MCH 30.7 pg (26.0-34.0); MCHC 32.2 g/dL (28.0-37.0); MCV 95.4 fL (80.0-100.0); RBC 4.94 mil/uL (4.50-6.00); WBC 26.3 thou/uL (4.0-11.0)
[2020-06-10 05:39] LABS: CALCIUM 8.7 mg/dL (8.5-10.1); CREATININE 1.2 mg/dL (0.7-1.3)
--- NOTE | 2020-06-10 06:42 | NUR ---
REPORTED 7BEATS VTACH TO DR. THORNE ON HIS AM ROUNDS, GAVE UPDATE. WAS TOLD TO KEEP PT K AROUND 4 AND MONITOR. NO NEW ORDERS
--- NOTE | 2020-06-10 09:07 | EKG ---
[facility] [place] [address] ELECTROCARDIOGRAM REPORT Name: DMITRI CLAUDIO Room #: 237-P ADM IN M.R.#: [id number] Admission: 05/25/20 Attend Phys: Shawn Landin MD Discharge: Date of : 57 Report #: [id number] THIS REPORT FOR: cc: Praveen Wilson MD, Stephen L. MD Santiago, Patrick MD [facility] ~ THIS REPORT FOR: //name// [facility] Test Date: 2020-06-09 Test Time: 11:53:23 Pat Name: DMITRI CLAUDIO Department: Room: 237 P Gender: M Wood Pole Treater: Purvi FLOREZ : 1955 Requested By: Franky Shaffer Order Number: [id number] MD: Franky Shaffer Measurements Intervals [place] Rate: 83 P: 12 IA: 125 QRS: 39 QRSD: 82 T: 52 QT: 500 QTc: 588 Interpretive Statements Sinus rhythm Low voltage, precordial leads Anteroseptal infarct, age indeterminate Prolonged QT interval Compared to ECG 05/25/2020 15:18:19 Low QRS voltage now present Myocardial infarct finding now present Prolonged QT interval now present T-wave abnormality no longer present Electronically Signed On 06-10-2020 9:07:42 AIRCRAFT ASSEMBLER by Franky Shaffer [email or web address] <ELECTRONICALLY SIGNED> By: Franky Shaffer MD, [facility] 06/10/20 0907 [id number] [id number] Franky Shaffer MD, [facility] /EPI
--- NOTE | 2020-06-10 10:29 | NUR ---
SPOKE WITH S/O AND UPDATED HER.
--- NOTE | 2020-06-10 10:30 | NUR ---
[facility] CARE AT 0700. PATIENT SAT IN THE MID 80'S TO 90. LEVOPHED AND VASOPRESSIN CONTINUE, WILL CONTINUE TO MONITOR
--- NOTE | 2020-06-10 16:30 | NUR ---
PATIENT CONTINUES TO HAVE EPISODES OF DESATING INTO THE 79 TO 81% RANGE WHEN BP DROPS TO THE 100/50 RANGE. O2 SAT INCREASED TO MID TO UPPER 80'2 WITH INCREASE IN LEVOPHED. PATIENT REMAINS UNRESPONSIVE TO ORAL CARE AND VERY WEAK. TUBE FEEDINGS HELD PATIENT IS VERY UNSTABLE WITH HIS O2 EXCHANGE.
--- NOTE | 2020-06-10 19:00 | NUR ---
PATIENT IS NOT PROGRESSING TOWARDS OUTCOME GOALS HE CONTINUES TO REQUIRE LEVOPHED AND VASOPRESSIN. SEDATED WITH FENTANYL AND PROPOFOL.
[2020-06-11] VITALS (80 sets, daily range): BP systolic 88–149; BP diastolic 49–83
--- NOTE | 2020-06-11 04:38 | NUR ---
Pt noted to have O2 SATS 82 % to 86 % this am, peep increased from 6 to 8 per RT, following SATS trending low. Spoke to Dr CHERY and updated on pt's current oxygen levels and vent settings, no orders received at this time. Per Dr CHERY DPOA ( Georgiana ) is aware that pt's condition is declining and pt remains full code per family. Will monitor.
[2020-06-11 04:57] LABS: HEMATOCRIT 46.8 % (42.0-52.0); HEMOGLOBIN 15.4 gm/dL (14.0-18.0); MCH 30.9 pg (26.0-34.0); MCHC 32.8 g/dL (28.0-37.0); MCV 94.1 fL (80.0-100.0); RBC 4.97 mil/uL (4.50-6.00); RDW 13.3 % (10.5-14.5); WBC 23.8 thou/uL (4.0-11.0)
[2020-06-11 05:00] LABS: CALCIUM 8.5 mg/dL (8.5-10.1); CREATININE 1.1 mg/dL (0.7-1.3); POTASSIUM 5.1 mmol/L (3.5-5.1)
--- NOTE | 2020-06-11 07:50 | NUR ---
RICARDO (PT'S DTR) HAD A VIRTUAL VISIT USING THE TABLET IN THE ROOM. SHE WAS ABLE TO SEE PT AND TALK TO HIM. PT UNRESPONSIVE AND SEDATED. UPDATE ON PT'S CONDITION GIVEN. THIS AM LOU ( DPOA) ALSO CALLED,WAS GIVEN AN UPDATE, SHE SAID SHE WOULD LIKE TO SPEAK WITH DR BOURNE TODAY, RELAYED THIS MESSAGE TO ONCOMING RN.
[2020-06-11 08:57] LABS: BE(vivo) 1.3 mmol/L (-2 to +3); HCO3 28.1 mmol/L (22.0-26.0); PCO2 52.1 mmHg (35.0-45.0); pH 7.349 (7.360-7.450); sO2 85.4 % (92.0-98.0)
--- NOTE | 2020-06-11 11:00 | NUR ---
New tube feed goal will be vital high protein at 40ml/hr. Recommend start 200ml water flush with 1 packet beneprotein if physician agrees with.
--- NOTE | 2020-06-11 14:22 | NUR ---
ASSUMED CARE @ 0700 06/11/20, PT ASSESSMENTS AND VS COMPLETE PER ICU PRT. ABG ORDERED THIS AM PER DR BOURNE, CRITICALS CALLED TO HIM BY LUZ HORN, ORDERS RECIEVED TO INCREASE PEEP TO 10. @ 0853, GCS 3, [facility]N CALLED, REFERENCE # [id number] DR HALE @ BEDSIDE @ 0930, UPDATE GIVEN PER RN, NO NEW ORDERS RECIEVED AT THIS TIME. @1003, LOU SIGNIFICANT OTHER/ DPOA, CALLED FOR AN UPDATE, CODE VERIFIED AND UPDATE GIVEN.
[2020-06-12] VITALS (57 sets, daily range): BP systolic 97–171; BP diastolic 53–95
[2020-06-12 03:33] LABS: BE(vivo) 2.4 mmol/L (-2 to +3); HCO3 31.6 mmol/L (22.0-26.0); PCO2 68.1 mmHg (35.0-45.0); PO2 55.3 mmHg (80.0-100.0); pH 7.284 (7.360-7.450); sO2 84.1 % (92.0-98.0)
[2020-06-12 05:35] LABS: RBC 5.03 mil/uL (4.50-6.00)
[2020-06-12 05:37] LABS: HEMOGLOBIN 15.6 gm/dL (14.0-18.0); MCHC 32.5 g/dL (28.0-37.0); MCV 95.4 fL (80.0-100.0); PLATELET COUNT 44 thou/uL (150-400); RDW 13.2 % (10.5-14.5); WBC 28.3 thou/uL (4.0-11.0)
[2020-06-12 06:15] LABS: CALCIUM 8.6 mg/dL (8.5-10.1); POTASSIUM 5.6 mmol/L (3.5-5.1); TOTAL BILIRUBIN 1.8 mg/dL (0.2-1.0); TOTAL PROTEIN 5.4 g/dL (6.4-8.2)
--- NOTE | 2020-06-12 07:50 | NUR ---
PT REMAINS SEDATED WITH PROPOFOL AND FENTANYL. SPO2 87-88% MOST OF THE NIGHT ON 100% FIO2. DR BOURNE NOTIFIED OF AM ABG RESULTS. ORDERS RECEIVED. ALBUMIN AND LASIX GIVEN. PT'S SIGNIFICANT OTHER (LOU) WAS UPDATED TWICE DURING THE NIGHT ON PT'S CONDITION. AFEBRILE. VASOPRESSION AND LEVOPHED FOR BP SUPPORT. REPORT GIVEN TO ONCOMING NURSE. NOT PROGRESSING TOWARD POC GOALS.
[2020-06-12 07:53] LABS: BE(vivo) 3.1 mmol/L (-2 to +3); HCO3 31.1 mmol/L (22.0-26.0); PCO2 60.7 mmHg (35.0-45.0); sO2 80.7 % (92.0-98.0)
[2020-06-12 07:54] LABS: PO2 48.9 mmHg (80.0-100.0); pH 7.327 (7.360-7.450)
--- NOTE | 2020-06-12 08:21 | HC ---
[facility] [place] [address] CONSULTATION Name: DMITRI CLAUDIO Room #: 237-P ADM IN M.R.#: [id number] Admission: 05/25/20 Attend Phys: Shawn Landin MD Discharge: Date of : 57 Report #: [id number] THIS REPORT FOR: cc: Praveen Wilson MD, Stephen L. MD Al-Mohan,Theresa Wolfe MD ~ REASON FOR CONSULTATION: Acute kidney injury, low urine output. REASON FOR PRESENTATION: Shortness of breath. HISTORY OF PRESENT ILLNESS: This is a 65-year-old who is currently intubated and not able to provide me with any history. He presented on 05/25/2020 after being told that he had COVID-19 one week before his presentation. A few days before his presentation, he started to have significant fever, shortness of breath. Because of the difficulty and worsening of his shortness of breath, he was brought to the Emergency Room for further evaluation and management. He is known to have diabetes mellitus and is maintained on metformin. He has also been receiving prednisone for unclear reasons to me. He has a history of kidney stones in the past. On arrival to the Emergency Room, the patient's creatinine was elevated at 1.5. This has trended down to 0.8 and started to go up in the last few days. The patient's urine output has significantly gone down. He had received almost 300 mg of Lasix in the last 24-hour period. He had worsening of his pulmonary status and required intubation. He had significant CO2 retention and currently on the vent, sedated and not able to provide me with any history. PAST MEDICAL HISTORY: 1. Per medical chart. 2. Diabetes mellitus. 3. Kidney stones. 4. Tonsillectomy. ALLERGIES: None. FAMILY HISTORY: Unobtainable given the patient's current mental status. SOCIAL HISTORY: Unobtainable given the patient's current mental status. REVIEW OF SYSTEMS: Unobtainable given the patient's current mental status. MEDICATIONS: Listed amongst his home medications are the followin. Prednisone. 2. Omeprazole. 3. Metformin. PHYSICAL EXAMINATION: [facility] [address] [place] [address] CONSULTATION Name: DMITRI CLAUDIO Room #: 237-P [facility] IN M.R.#: [id number] Admission: 05/25/20 Attend Phys: Shawn Landin MD Discharge: Date of : 57 Report #: [id number] GENERAL: He is intubated and sedated. VITAL SIGNS: Blood pressure 65/34, maintained on pressor. HEAD AND NECK: No jugular venous distention. ET tube in place. CHEST: Crackles present bilaterally. CARDIOVASCULAR: No rub. ABDOMEN: Soft. LOWER EXTREMITIES: No edema. LABORATORY DATA: From today revealed the following: White blood cell count is 48.1, hemoglobin 17, sodium is 137, potassium is 5, BUN is 35, creatinine is 1.8. IMAGING: Chest x-ray: Significantly worsening chest x-ray finding, increased opacities in the right middle and right lower lobe. IMPRESSION AND PLAN: 1. Acute kidney injury. 2. COVID-19 active infection. 3. Respiratory failure. 4. Hypotension with lactic acidosis. This is a very critical and grim situation. The patient's acute kidney injury is expected with the current deterioration of his hemodynamics. He is going into acute tubular necrosis. I would continue with the current pandemic support. Continue current pressors. Continue the management and treatment of his COVID-19 with the appropriate recommended medications. I will talk with his family members regarding the next step. Very poor prognosis. <ELECTRONICALLY SIGNED> By: Theresa Ward MD 06/12/20 0821 0908 [id number] Theresa Ward MD /nt
[2020-06-12 08:26] LABS: ABSOLUTE NEUTROPHILS 27.2 thou/uL (1.4-8.2)
[2020-06-12 08:27] LABS: PLATELET ESTIMATE DECREASED
[2020-06-12 08:28] LABS: LARGE PLATELETS FEW
[2020-06-12 08:30] LABS: ANISOCYTOSIS SLIGHT; POLYCHROMASIA SLIGHT; TOXIC GRANULATION SLIGHT
--- NOTE | 2020-06-12 10:41 | NUR ---
cm spoke with arnold christie. had few question about medical records, want to talk with dr nelson. would like to know if what was requested in yesterdays meeting will help other people as well"/shahnaz . he remains on vent, cont nutritional support.
--- NOTE | 2020-06-12 13:58 | NUR ---
ASSEUMED CARE @ 0700 06/12/20, PT ASSESSMENTS AND VSS COMPLETE PER ICU PRT. ABG DONE THIS AM AND CALLED TO DR BOURNE, VENT CHANGES MADE. AT 1200 ASSESSMENTS RN NOTICES SUB Q AIR ON THE RIGHT UPPER CHEST. DR BOURNE IS PAGED, ORDER FOR A STAT CHEST XRAY IS OBTAINED. RN CALLED FROM RADIOLOGY INDICATING BILATERAL SMALL PNEUMO, THIS AI CALLED TO DR BOURNE, RN TOLD TO MONITOR AND GET ANOTHER CHEST XRAY @ 1600.
--- NOTE | 2020-06-12 20:19 | NUR ---
2009 - SIGNIFICANT OTHER (LOU) AND OTHER FAMILY MEMBERS WERE ABLE TO FACETIME WITH PATIENT VIA [facility] IPAD. UPDATED LOU ON POC.
--- NOTE | 2020-06-12 23:00 | NUR ---
2300 - PT NOTED TO HAVE INCREASED SUBCUTANEOUS AIR TO RIGHT ANTERIOR CHEST AND LEFT NECK. SPO2 REMAINS 88-90% ON 100% FIO2 VIA VENT. NO INCREASE IN RR OR HR NOTED. NO RESPIRATORY DISTRESS NOTED. DR BOURNE UPDATED. WAITING FOR ER PHYSICIAN TO COME PLACE CHEST TUBE ( WAS DISCUSSED WITH DR BOURNE). WILL NOTIFY DR BOURNE OF ANY FURTHER CHANGES INDICATING RESPIRATORY DISTRESS. PER DR BOURNE, IF ER PHYSICIAN IS NOT ABLE TO PLACE CHEST TUBE TONIGHT AND PT DOES NOT EXPERIENCE ANY RESPIRATORY DISTRESS, THEN DR BOURNE WILL PLACE CHEST TUBE IN THE MORNING. PT'S SIGNIFICANT OTHER (LOU) IS AWARE OF NEED FOR CHEST TUBE PLACEMENT. THIS RN SPOKE WITH HER EARLIER IN THE SHIFT REGARDING PLANS FOR CHEST TUBE.
[2020-06-13] VITALS (14 sets, daily range): BP systolic 119–155; BP diastolic 66–78
--- NOTE | 2020-06-13 01:43 | NUR ---
0105 - CALLED ER REGARDING PHYSICIAN PLACING CHEST TUBE. STAFF MEMBER STATED ER PHYSICIAN WOULD CALL BACK WHEN AVAILABLE. 0130 - SPOKE WITH DR WALL (ER PHYSICIAN) REGARDING PLACING CHEST TUBE, WAS DISCUSSED WITH DR BOURNE EARLIER IN THE NIGHT. DR WALL REVIEWED PT'S MOST RECENT CHEST XRAY AND STATED THE PNEUMOTHORACES WERE SMALL AND A CHEST TUBE MAY NOT BE EFFECTIVE. SHE RECOMMENDED A REPEAT CHEST XRAY. SPO2 85-86%. HR 90S.
--- NOTE | 2020-06-13 02:22 | NUR ---
0221 - SPO2 81-83%. INCREASED SUBCUTANEOUS AIR TO RIGHT ANTERIOR CHEST. NOTIFIED DR BOURNE. CHEST XRAY ORDERED. DR BOURNE STATED HE WILL COME SEE PT SOON.
--- NOTE | 2020-06-13 03:23 | NUR ---
0324 - UPDATED DR BOURNE ON CHEST XRAY RESULTS. HE IS PLANNING TO COME SEE PT. SPO2 83% ON 100% FIO2.
--- NOTE | 2020-06-13 04:40 | NUR ---
AROUND 0430 - RIGHT CHEST TUBE INSERTED AT BEDSIDE BY DR BOURNE. PT TOLERATED WELL.
[2020-06-13 04:56] LABS: BE(vivo) 7.4 mmol/L (-2 to +3); sO2 79.5 % (92.0-98.0)
[2020-06-13 04:59] LABS: HEMOGLOBIN 13.7 gm/dL (14.0-18.0)
[2020-06-13 05:02] LABS: PCO2 68.2 mmHg (35.0-45.0)
[2020-06-13 05:02] LABS: HEMATOCRIT 41.6 % (42.0-52.0); MCH 31.5 pg (26.0-34.0); MCV 95.5 fL (80.0-100.0); PLATELET COUNT 29 thou/uL (150-400); RBC 4.36 mil/uL (4.50-6.00); RDW 12.9 % (10.5-14.5); WBC 23.6 thou/uL (4.0-11.0)
[2020-06-13 05:03] LABS: PO2 47.6 mmHg (80.0-100.0)
[2020-06-13 05:30] LABS: ALBUMIN 3.5 g/dL (3.4-5.0); CALCIUM 9.1 mg/dL (8.5-10.1); CREATININE 0.7 mg/dL (0.7-1.3); POTASSIUM 5.4 mmol/L (3.5-5.1); TOTAL BILIRUBIN 3.4 mg/dL (0.2-1.0); TOTAL PROTEIN 5.7 g/dL (6.4-8.2)
[2020-06-13 06:51] LABS: ABSOLUTE NEUTROPHILS 21.7 thou/uL (1.4-8.2)
[2020-06-13 06:52] LABS: LARGE PLATELETS FEW; PLATELET ESTIMATE MARKEDLY DECREASED
--- NOTE | 2020-06-13 07:13 | NUR ---
0518 - DPOA LOU WAS PROVIDED UPDATE. SHE WAS NOTIFIED THAT CHEST TUBE WAS PLACED AND SPO2 STILL REMAINS IN THE 80S. 2135 - DR BOURNE NOTIFIED OF ABG RESULTS. ORDER RECEIVED FOR RT TO DECREASE PEEP TO 8. WILL GIVE REPORT TO ONCOMING NURSE. PT NOT PROGRESSING TOWARD POC GOALS.
[2020-06-13 10:06] LABS: BE(vivo) 7.4 mmol/L (-2 to +3); sO2 58.7 % (92.0-98.0)
[2020-06-13 10:07] LABS: PCO2 75.9 mmHg (35.0-45.0); PO2 34.8 mmHg (80.0-100.0); pH 7.306 (7.360-7.450)
--- NOTE | 2020-06-13 11:25 | NUR ---
cm received phone call from shahnaz " need help, needing to see father torsten and talk with dr. we need information. we are outside the icu in waiting room"/shahnaz.
--- NOTE | 2020-06-13 11:30 | NUR ---
cherri spoke with icu unite utility mechanic supervisor, "dr have been notified and nurse is in room. cno visited with shahnaz via phone call this am. they have to wait. "/utility mechanic supervisor. [facility] did not request family to come to hospital (abraham christie or jeannette.). cherri called father torsten and in [place]. cherri left message for father torsten. cherri offered camille and shahnaz stated " no he has wishes and had bernarda call camille earlier today, she has the camille number, and we know he is in [place] right now. we need information from dr if he is critical with his numbers"/shahnaz.
--- NOTE | 2020-06-13 12:30 | NUR ---
Conference called with Dr Robles and DR Darby, Mary Champagne PRINT ROOM WORKER and Nicolás Dimas Nurse Editor Greeting Card. The Family of Mr Rosales are concerned about the continued failing condition of their loved one due to the Covid -[address] Robles and Dr Darby spoke to the family which included Georgiana the DPOA and Liyah and Araceli the daugthers. They talked about the treaments we have done and the Continued support of all the disciplinaries. That the ICU nurses are the best ICU to take care of these patients. That they trust that they will take care of all patients with compassion and love. That were are doing everything within the known practice for this disease that we know. That with all we do not believe that he will recover and we should make him a DNR. We can answer all your questions we can give you numbers, we will support you if he makes a turn for the better, we will support him and take care of him even with the DNR status does not mean we give up. It was asked whether they talked about what would happen if it got to this point. The family will still call and get information. The phyisicans will keep them updated. The ICU Nurse will call them if the physician says you should have the family come in, its imminent.
[2020-06-13 12:33] LABS: BE(vivo) 10.3 mmol/L (-2 to +3); HCO3 39.7 mmol/L (22.0-26.0); PCO2 76.9 mmHg (35.0-45.0); PO2 36.2 mmHg (80.0-100.0); pH 7.331 (7.360-7.450); sO2 62.5 % (92.0-98.0)
--- NOTE | 2020-06-13 14:18 | NUR ---
THIS TURNER SPLITTER MACHINE OPERATOR MET WITH THE FAMILY PRIOR TO THE LAST DOCTOR MEETING WITH THEM. I ASSISTED IN COMMUICATING WITH NURSING STAFF AND EDUCATION ADMINISTRATIVE ASSISTANT THAT THE FAMILY DESIRED TO GET ALL OF THE PATIENT'S POSSESSIONS. THE STAFF OBTAINED THEM. I DOUBLE BAGGED THEM IN A CLEAN SACK OUTSIDE THE ROOM. I TOOK THE POSSESIONS TO THEM. I CLARIFIED IF THE FAMILY HAD ANY OTHER QUESTIONS AND THEY DID NOT. WE CONCLUDED IN PRAYER. THEY DEPARTED FROM THE ICU FAMILY MEETING ROOM.
[2020-06-13 15:10] LABS: BE(vivo) 11.6 mmol/L (-2 to +3); HCO3 41.2 mmol/L (22.0-26.0); pH 7.338 (7.360-7.450); sO2 60.5 % (92.0-98.0)
[2020-06-13 15:11] LABS: PCO2 78.4 mmHg (35.0-45.0)
--- NOTE | 2020-06-13 18:47 | NUR ---
PATIENT NOT PROGRESSING TOWARDS DISMISSAL GOALS. FAMILY OF PATIENT [facility] TODAY. FAMILY MEETING OCCURED. PATIENT DNR. PATIENT BELONGINGS SENT WITH FAMILY MEMBERS. (DPOA PAPERWORK, SHOES, CLOTHES) ALL BELONGINGS LEFT WITH PATIENT. GIRLFRIEND-DPOA LOU GONZALEZ WAS SPOKEN TO FREQUENTLY ABOUT PATIENT UPDATES AND CURRENT CONDITION. PATIENT OXYGEN SATURATIONS 60-70'S DURING THE DAY. ALL MDS AWARE. LASIX GIVEN TODAY, ARTERIAL LINE PLACED. PROPOFOL AND FENTANYL FOR SEDATION. LEVOPHED AND VASOPRESSIN FOR BLOOD PRESSURE MANAGMENT.
--- NOTE | 2020-06-13 23:46 | NUR ---
This RN spoke to Dr. Robles at 2200 regarding patients status. Patient satting in 50's-60's and blood pressure is fluactuating greatly. Got orders for a chest x ray and to start Rudy if needed. Also discussed potential patient outcome and probably throughout night.
--- NOTE | 2020-06-14 03:36 | NUR ---
This RN to bedside at 1900 last evening. Patient satting in the 50-60's. This RN called Dr. Robles to discuss status around 2200 last night. Blood pressure has been fluctuating to as high as 180's systolic and has dropped to 60's systolic. Dr. Robles had us start patient on Rudy and get a chest x ray. Patients girlfriend, Georgiana, called this RN at 2300 and asked for an update. This RN updated patient and was honest regarding condition, this RN stated she was not sure if he would make it through the night. Family asked if they could come say goodbye to patient and come into the room. Informed family about policy since he is a COVID positive patient and that no family members can go into the room, but if patient has impending family may say goodbye through glass doors. This RN informed family I would have to talk to the charge nurse and camp housekeeper. Upon consultation, we decided it best to tell family to wait, and while patient has impending they were currently unstably "stable". When RN called family to answer, they stated they were in the parking lot. This RN called camp housekeeper, who called the family. Family to be let in to say goodbyes by security. Family visited from [phone]. Discussed patient care and how patient was unable to feel any pain and discussed what would happen after they passed. Family asked to enter the room several times and stated "Can't you just turn a blind eye for 2 minutes so I can run in and kiss him goodbye?" RN once again informed family this could not happen and offered support. Family also facetimed patient on facilities iPad to sa [place]. Family left and this RN assured I would call with updates or if happened tonight. Patient started on Rudy gtt around 0330 this morning for dropping blood pressure and patient now currently satting in the lower 40's. Patient remains on vasopressin, levophed, and rudy for blood pressure support. Not progressing towards goals. Will continue to monitor.
[2020-06-14 04:34] LABS: HCO3 36.5 mmol/L (22.0-26.0); PCO2 77.4 mmHg (35.0-45.0); PO2 27.2 mmHg (80.0-100.0); sO2 41.8 % (92.0-98.0)
[2020-06-14 04:35] LABS: pH 7.292 (7.360-7.450)
--- NOTE | 2020-06-14 15:30 | NUR ---
cm spoke with shahnaz, she had question as to when or if time line to have body picked up? " thought this was all lined out but neris did not have a home picked"/shahnaz. active listening and passed on condolence for shahnaz, jeannette, and abraham his daughters along with family. cm provided name of [facility] and [facility] to check and see. "thank you"/shahnaz. cm notified security that shahnaz will call when has picked out.
== END 2020-06-14 06:07 | DRG 870 ==
LOC: ER 14:18 → 3W 15:48 → EROBS 15:48 → ICU 15:48 → 3W 16:45 → ICU 05-31 14:20 → 3W 05-31 14:45 → ICU 05-31 23:13
PROVIDERS: Hospitalist; Internal Medicine Pulmonary Disease; Pediatrics; Physician Assistant; Specialist; ADMIT Hospitalist; ATTEND Hospitalist
PROC: XW033E5 Introduction of Remdesivir Anti-infective into Peripheral Vein, Percutaneous Approach, New Technology Group 5 (ICD-10-PCS; 2020-05-25)
PROC: XW13325 Transfusion of Convalescent Plasma (Nonautologous) into Peripheral Vein, Percutaneous Approach, New Technology Group 5 (ICD-10-PCS; 2020-05-26)
PROC: 5A09357 Assistance with Respiratory Ventilation, Less than 24 Consecutive Hours, Continuous Positive Airway Pressure (ICD-10-PCS; 2020-05-28)
PROC: 5A09357 Assistance with Respiratory Ventilation, Less than 24 Consecutive Hours, Continuous Positive Airway Pressure (ICD-10-PCS; 2020-05-29)
PROC: 5A09357 Assistance with Respiratory Ventilation, Less than 24 Consecutive Hours, Continuous Positive Airway Pressure (ICD-10-PCS; 2020-05-30)
PROC: 5A09357 Assistance with Respiratory Ventilation, Less than 24 Consecutive Hours, Continuous Positive Airway Pressure (ICD-10-PCS; 2020-05-31)
PROC: 5A09357 Assistance with Respiratory Ventilation, Less than 24 Consecutive Hours, Continuous Positive Airway Pressure (ICD-10-PCS; 2020-06-01)
PROC: 5A09357 Assistance with Respiratory Ventilation, Less than 24 Consecutive Hours, Continuous Positive Airway Pressure (ICD-10-PCS; 2020-06-02)
PROC: 5A09357 Assistance with Respiratory Ventilation, Less than 24 Consecutive Hours, Continuous Positive Airway Pressure (ICD-10-PCS; 2020-06-03)
PROC: 0BH18EZ Insertion of Endotracheal Airway into Trachea, Via Natural or Artificial Opening Endoscopic (ICD-10-PCS; principal; 2020-06-04)
PROC: 5A09357 Assistance with Respiratory Ventilation, Less than 24 Consecutive Hours, Continuous Positive Airway Pressure (ICD-10-PCS; principal; 2020-06-04)
PROC: 02HV33Z Insertion of Infusion Device into Superior Vena Cava, Percutaneous Approach (ICD-10-PCS; principal; 2020-06-04)
PROC: 5A1955Z Respiratory Ventilation, Greater than 96 Consecutive Hours (ICD-10-PCS; principal; 2020-06-04)
PROC: 4A133J1 Monitoring of Arterial Pulse, Peripheral, Percutaneous Approach (ICD-10-PCS; 2020-06-13)
PROC: 0W9930Z Drainage of Right Pleural Cavity with Drainage Device, Percutaneous Approach (ICD-10-PCS; 2020-06-13)
PROC: 03HY32Z Insertion of Monitoring Device into Upper Artery, Percutaneous Approach (ICD-10-PCS; 2020-06-13)
PROC: 4A133B1 Monitoring of Arterial Pressure, Peripheral, Percutaneous Approach (ICD-10-PCS; 2020-06-13)
DX: A41.1 Sepsis due to other specified staphylococcus (principal); U07.1 COVID-19; J96.01 Acute respiratory failure with hypoxia; J12.89 Other viral pneumonia; R65.21 Severe sepsis with septic shock; E43 Unspecified severe protein-calorie malnutrition; G92 Toxic encephalopathy; E46 Unspecified protein-calorie malnutrition; N17.9 Acute kidney failure, unspecified; I47.1 Supraventricular tachycardia; J98.2 Interstitial emphysema; I95.9 Hypotension, unspecified; I48.0 Paroxysmal atrial fibrillation; D69.6 Thrombocytopenia, unspecified; E66.9 Obesity, unspecified; N20.0 Calculus of kidney; N40.0 Benign prostatic hyperplasia without lower urinary tract symptoms; K21.9 Gastro-esophageal reflux disease without esophagitis; E87.6 Hypokalemia; E87.5 Hyperkalemia; R13.10 Dysphagia, unspecified; Z66 Do not resuscitate; Z68.34 Body mass index [BMI] 34.0-34.9, adult; Z79.899 Other long term (current) drug therapy; Z79.84 Long term (current) use of oral hypoglycemic drugs
CPT/HCPCS: 10078; 10879